=== PATIENT | female | born 1975 | race Two or more races ===

== ENCOUNTER 2017-09-17 12:16 | Outpatient (CLI) | payer OTHER ==
[~2017-09-17 12:16] MED LIST: ALBUTEROL2.5 MG/3 M IH; PRENATAL + DHA1 EAC1; SINGULAIR10 MG PO; SYMBICORT 16010.2 GM IH
== END 2017-09-17 13:08 | disposition home or self-care (01) ==
LOC: NST 12:16
DX: Z34.83 Encounter for supervision of other normal pregnancy, third trimester (principal)

== ENCOUNTER 2017-09-19 14:53 | Outpatient (CLI) | payer OTHER | END 2017-09-19 16:51 | disposition home or self-care (01) | LOC: NST 14:53 | DX: Z34.83 Encounter for supervision of other normal pregnancy, third trimester (principal) ==

== ENCOUNTER 2017-09-20 01:08 | Inpatient (IN) | payer OTHER ==
[~2017-09-20] VITALS: Ht 162.6 cm; Wt 97.1 kg
== END 2017-09-22 12:37 | DRG 775 ==
LOC: LDR 01:08 → OB/GYN 16:13
PROC: 0UQGXZZ Repair Vagina, External Approach (ICD-10-PCS; principal; 2017-09-20)
PROC: 10E0XZZ Delivery of Products of Conception, External Approach (ICD-10-PCS; 2017-09-20)
PROC: 4A1HXCZ Monitoring of Products of Conception, Cardiac Rate, External Approach (ICD-10-PCS; 2017-09-20)
DX: O71.4 Obstetric high vaginal laceration alone (principal); Z3A.37 37 weeks gestation of pregnancy; Z37.0 Single live birth

== ENCOUNTER 2018-02-26 08:33 | Day surgery (SDC) | payer OTHER | END 2018-02-26 13:10 | disposition home or self-care (01) | LOC: CIR.AMB 08:33 | DX: N84.0 Polyp of corpus uteri (principal) ==

== ENCOUNTER 2018-07-22 09:43 | Outpatient (CLI) | payer OTHER | END 2018-07-22 15:18 | disposition home or self-care (01) | LOC: SONOGRAMA 09:43 | DX: N84.0 Polyp of corpus uteri (principal) ==

== ENCOUNTER 2018-12-10 09:32 | Outpatient (CLI) | payer OTHER | END 2018-12-10 09:41 | disposition home or self-care (01) | LOC: SONOGRAMA 09:32 → MAMO-SONO 10:45 | DX: E04.0 Nontoxic diffuse goiter (principal) ==

== ENCOUNTER 2021-02-17 09:28 | Outpatient (CLI) | payer OTHER | END 2021-02-17 09:46 | disposition home or self-care (01) | LOC: TOM 09:28 | PROVIDERS: ATTEND Family Medicine | DX: M79.12 Myalgia of auxiliary muscles, head and neck (principal); M54.2 Cervicalgia ==

== ENCOUNTER 2022-08-09 09:19 | Outpatient (CLI) | payer OTHER | END 2022-08-09 10:11 | disposition home or self-care (01) | LOC: MAMO-SONO 09:19 | PROVIDERS: ATTEND Family Medicine | DX: M05.9 Rheumatoid arthritis with rheumatoid factor, unspecified (principal); R76.0 Raised antibody titer; N60.11 Diffuse cystic mastopathy of right breast; N60.12 Diffuse cystic mastopathy of left breast ==

== ENCOUNTER 2023-02-27 08:30 | Inpatient (IN) | payer OTHER ==
[~2023-02-27] VITALS: Ht 162.6 cm; Wt 97.1 kg
[2023-02-27 09:53] LABS: HEMATOCRIT 35.3 % (36.0-45.00); MEAN CELL VOLUME 84.3 fL (80.00-100.00); MEAN CORPUSCULAR HEMOGLOBIN 28.7 pg (27.00-32.0); PLATELET COUNT 297 K/uL (150-450); RED BLOOD COUNT 4.18 M/uL (4.00-6.00); RED CELL DISTRIBUTION WIDTH 14.5 % (11.5-14.5)
[2023-02-27 10:06] LABS: INR 0.98; PARTIAL THROMBOPLASTIN TIME 27.7 SECONDS (22.0-34.0); PROTHROMBIN TIME 10.3 SECONDS (9.0-11.5)
[2023-02-27 10:26] LABS: ALBUMIN 3.4 gm/dL (3.4-5.0); BILIRUBIN TOTAL 0.5 mg/dL (0.3-1.2); CALCIUM 8.7 mg/dL (8.5-10.1); CREATININE SERUM 0.82 mg/dL (0.55-1.02); GFR 75.39; GLOBULINA 3.1 G/DL (2.4-3.5); POTASSIUM 4.02 mEq/L (3.5-5.1); TOTAL PROTEIN 6.5 gm/dL (6.4-8.2)
[2023-03-07 05:14] LABS: HEMATOCRIT 30.9 % (36.0-45.00); HEMOGLOBIN 10.5 g/dL (12.0-15.00); MEAN CELL VOLUME 82.9 fL (80.00-100.00); MEAN CORPUSCULAR HEMOGLOBIN 28.1 pg (27.00-32.0); MEAN CORPUSCULAR HGB CONC 33.9 g/dl (32.0-36.0); PLATELET COUNT 200 K/uL (150-450); RED BLOOD COUNT 3.72 M/uL (4.00-6.00); RED CELL DISTRIBUTION WIDTH 14.1 % (11.5-14.5)
[2023-03-07 05:26] LABS: ALBUMIN 2.7 gm/dL (3.4-5.0); BILIRUBIN TOTAL 0.32 mg/dL (0.3-1.2); CALCIUM 8.1 mg/dL (8.5-10.1); CREATININE SERUM 0.81 mg/dL (0.55-1.02); GFR 76.12; GLOBULINA 2.5 G/DL (2.4-3.5); POTASSIUM 3.87 mEq/L (3.5-5.1); TOTAL PROTEIN 5.2 gm/dL (6.4-8.2)
== END 2023-03-08 10:11 | disposition home or self-care (01) | DRG 743 ==
LOC: O/R 03-06 07:02 → OB/GYN 03-06 08:30
PROVIDERS: ADMIT Obstetrics & Gynecology; ATTEND Obstetrics & Gynecology
PROC: 0UT74ZZ Resection of Bilateral Fallopian Tubes, Percutaneous Endoscopic Approach (ICD-10-PCS; 2023-03-06)
PROC: 0UT24ZZ Resection of Bilateral Ovaries, Percutaneous Endoscopic Approach (ICD-10-PCS; 2023-03-06)
PROC: 0UT94ZZ Resection of Uterus, Percutaneous Endoscopic Approach (ICD-10-PCS; principal; 2023-03-06 14:00)
DX: D25.2 Subserosal leiomyoma of uterus (principal); N83.01 Follicular cyst of right ovary; N83.12 Corpus luteum cyst of left ovary; N85.02 Endometrial intraepithelial neoplasia [EIN]; Z20.822 Contact with and (suspected) exposure to COVID-19